=== PATIENT | male | born 1940 | race Caucasian/White ===

== ENCOUNTER → 2017-06-19 | Outpatient (CLI) | payer MEDICARE ==
[~2017-06-19] MED LIST: /WARF25TA PO; ALEVE PO; ASPI1TAB; ASPI81CH12 PO; COUM2.5T17 PO; MULTCAP PO; PERCOCET PO; TYLE167L PO
[2017-06-19 18:39] LABS: TOTAL PROTEIN 7.7 GM/DL (6.4-8.2)
[2017-06-19 18:41] LABS: VITAMIN B12 LEVEL 600 PG/ML
[2017-06-19 18:42] LABS: FOLATE 16.5 NG/ML
[2017-06-21 14:02] LABS: ALBUMIN 4.46 GM/DL (3.29-5.55); ALBUMIN % 57.9 % (55.8-66.1); GAMMA GLOBULIN % 18.7 % (11.1-18.8)
== END ==
LOC: M LABNEURO 13:03
PROVIDERS: ATTEND Psychiatry & Neurology Neurology
DX: I63.9 Cerebral infarction, unspecified (principal)